=== PATIENT | female | born 1970 | race Caucasian/White ===

== ENCOUNTER 2017-04-01 14:40 | Emergency (ER) | payer BC ==
[~2017-04-01] VITALS: Ht 167.6 cm; Wt 81.6 kg
[2017-04-01 14:40] VITALS: BP_SYST 116
[2017-04-01] MEDS ORDERED: KETOROLAC TROMETHAMINE 60 MG/2 ML VIAL IM ONE (15:00)
[2017-04-01] MEDS ORDERED: LORazepam 1 MG TABLET PO ONE (15:00)
[2017-04-01 17:24] VITALS: BP_SYST 100
== END 2017-04-01 17:24 | disposition home or self-care (01) ==
LOC: SED 14:40
DX: M94.0 Chondrocostal junction syndrome [Tietze] (principal); H91.90 Unspecified hearing loss, unspecified ear
CPT/HCPCS: 71010; 71100; 81025; 96372; 99284; J1885